=== PATIENT | female | born 1995 | race African-American/Black ===

== ENCOUNTER 2020-12-15 04:15 | Emergency (ER) | payer MEDICAID ==
[~2020-12-15] VITALS: Ht 165.1 cm; Wt 90.0 kg
[2020-12-15] MEDS ORDERED: ONDANSETRON HCL 4MG/2ML INJ IV STA (04:27)
[2020-12-15] MEDS ORDERED: KETOROLAC 30MG/ML VIAL IV STA (04:27)
[2020-12-15] MEDS ORDERED: SODIUM CHLORIDE 0.9% 1,000 ML IV ONE (04:30)
[2020-12-15 05:11] LABS: BASOPHILS % 0.4 % (0.0-2.0); EOSINOPHILS % 1.1 % (0.0-5.0); HEMATOCRIT. 32.5 % (36.0-48.0); HEMOGLOBIN. 9.8 g/dL (12.0-16.0); LYMPHOCYTES % 29.5 % (20.0-50.0); MEAN CORPUSCULAR VOLUME 73.2 fL (81.0-99.0); MEAN PLATELET VOLUME 9.5 fl (7.4-10.4); MONOCYTES % 7.5 % (2.0-8.0); NEUTROPHILS % 61.5 % (40.0-76.0); PLATELET 319 x1000/uL (130-400); RED BLOOD CELL COUNT 4.44 mill/uL (4.2-5.4); RED CELL DISTRIBUTION WIDTH 16.4 % (11.6-14.6)
[2020-12-15 05:27] LABS: CHLORIDE 108 mEq/L (98-107)
[2020-12-15 05:35] LABS: CLARITY URINE TURBID (CLEAR); HCG SCREEN NEGATIVE; KETONES URINE 2+ (NEGATIVE); LEUKOCYTE ESTERASE URINE 3+ (NEGATIVE); NITRITE URINE POSITIVE (NEGATIVE); OCCULT BLOOD URINE 3+ (NEGATIVE); PROTEIN URINE 3+ (NEGATIVE); SPECIFIC GRAVITY URINE 1.031 (1.005-1.030)
[2020-12-15 05:37] LABS: COLOR URINE BLOODY (YELLOW)
[2020-12-15] MEDS ORDERED: AMOX-494 MT (06:15)
[2020-12-15] MEDS ORDERED: IBUP-2029 MT (06:15)
[2020-12-15 06:39] VITALS: BP 110/71
== END 2020-12-15 06:40 | disposition home or self-care (01) ==
LOC: ER 04:15
DX: N30.00 Acute cystitis without hematuria (principal); K56.41 Fecal impaction
CPT/HCPCS: 36415; 74176; 80053; 81003; 81025; 83690; 84703; 85025; 93005; 96361; 96374; 96375; 99285; J1885; J2405; J7030